=== PATIENT | female | born 1955 | race Caucasian/White ===

== ENCOUNTER 2021-03-06 16:40 | Emergency (ER) | payer BC ==
[~2021-03-06] VITALS: Ht 165.1 cm; Wt 67.0 kg
[2021-03-06 21:40] VITALS: BP 156/73
[2021-03-06] MEDS ORDERED: TETanus/Pertussis (Acell)/Diphther VAC/PF (Tdap-Adult) 0.5ml syringe IMVAC ONE (22:10)
--- NOTE | 2021-03-06 22:33 | NUR ---
pt discharged before nursing assessments done
== END 2021-03-06 22:33 | disposition home or self-care (01) ==
LOC: ER 16:41
DX: S01.112A Laceration without foreign body of left eyelid and periocular area, initial encounter (principal); X58.XXXA Exposure to other specified factors, initial encounter; Y93.89 Activity, other specified; Y92.89 Other specified places as the place of occurrence of the external cause; Y99.8 Other external cause status
CPT/HCPCS: 12011; 90471; 90715; 99283